=== PATIENT | female | born 2000 | race Caucasian/White ===

== ENCOUNTER 2021-04-08 21:14 | Emergency (ER) | payer SELFPAY ==
[2021-04-08 21:27] VITALS: BP 113/62; PULSE 99; RESP 18; TEMP 36.4; O2SAT 100
[2021-04-08 21:56] LABS: Basophils Percent Auto 0.2 % (0.2-1.2); Eosinophils Absolute Auto 0.1 K/mm3 (0-0.3); Eosinophils Percent Auto 0.5 % (0-4.4); Hematocrit 37.7 % (37.0-47.0); Hemoglobin 12.7 g/dL (12.0-15.0); Immature Granulocyte Absolute 0.05 K/mm3 (0.00-0.031); Immature Granulocyte Percent A 0.4 % (0-0.5); Lymphocytes Absolute Auto 1.72 K/mm3 (0.9-3.2); Lymphocytes Percent Auto 14.2 % (18.3-44.2); Mean Corpuscular HGB Conc 33.7 g/dl (32-36); Mean Corpuscular Hemoglobin 28.5 pg (26-34); Mean Corpuscular Volume 84.7 fl (80-100); Mean Platelet Volume 9.2 fl (7.4-10.4); Monocytes Absolute Auto 0.8 K/mm3 (0.1-0.6); Monocytes Percent Auto 6.3 % (2.6-8.5); Neutrophils Absolute Auto 9.5 K/mm3 (1.3-6.7); Neutrophils Percent Auto 78.4 % (45.5-73.1); Platelet Count Result 209 k/mm3 (150-375); Red Blood Count 4.45 M/mm3 (4.2-5.4); Red Cell Distribution Width 13.6 % (11.5-14.5); White Blood Count 12.1 K/mm3 (4.5-10.0)
[2021-04-08 22:17] VITALS: BP 133/90; PULSE 104; RESP 18; O2SAT 100
[2021-04-08 22:20] VITALS: BP 125/68; PULSE 103
[2021-04-08 22:21] VITALS: BP 122/69; PULSE 113
[2021-04-08 22:22] VITALS: BP 120/72; PULSE 108
--- NOTE | 2021-04-08 22:44 | ED.PREGNANCY ---
HPI - General Chief complaint: [employer] Stated complaint: 14 weeks , abnormal bleeding Time Seen by Provider: 04/08/21 22:19 Source: patient and RN notes reviewed Mode of arrival: ambulatory Limitations: no limitations History of Present Illness HPI Narrative: This is a 21 year old female 14 weeks GA who presents for evaluation of vaginal bleeding. Patient was seen at outside hospital 03/26/21 for vaginal bleeding and she was give rhogam at that time. She has return to ER today because she noticed blood when she wipes. She reports bleeding is minimal and blood is darker . She also reports lower abdominal cramping. She denies fever, nausea, vomiting. She reports she had US in January that showed IUP . Her OBGYN is located in [place] and her next appointment in 04/22/21. Related Data Allergies Allergy/AdvReac Type Severity Reaction Status Date / Time latex Allergy Swelling Verified 04/09/21 00:49 Review of Systems Review of Systems: All systems reviewed & are unremarkable except as noted in HPI and below PMFSH Past Medical History Medical History (Updated 04/09/21 @ 01:00 by Noemy Mora MD) Patient denies medical problems Social History Social History Gender identity (if verbalized by the patient): Female Exam Const: General: no acute distress and alert Orientation/consciousness: patient oriented x3 Resp: Effort & Inspection: normal respiratory effort and no retractions Auscultation: clear to auscultation bilaterally Cardio: Rate: regular rate Rhythm: regular rhythm Heart sounds: no murmurs GI: GI Palp: Yes Soft to palpation, No Tenderness to palpation present (GI) and No Guarding due to palpation present (GI) Auscultation: normal bowel sounds : Speculum Exam - Cervix: normal appearance of the cervix and Cervical os closed Other: copious white discharge, no bleeding seen Back/Spine/Pelvis: Back: no CVA tenderness Skin: General skin exam: normal color Rashes: no rashes Neuro: General: patient oriented x3, moves all extremities and CN's II-XI intact bilaterally Psych: Mental Status: mental status grossly normal Affect: normal affect Course Reevaluation(s) Reevaluation #1: I performed bedside US. Good movement and heart tones seen. Date: 04/08/21 Time: 22:48 Reevaluation #2: Patient will be started on antibiotcs. She received rhogam 2 weeks ago so I Will not repeat. She will be placed on pelvic rest and follow up with OB Date: 04/09/21 Time: 00:21 Vital Signs Vital signs: Vital Signs Temperature 97.6 F 04/08/21 21:27 Pulse Rate 99 04/08/21 21:27 Respiratory Rate 18 04/08/21 21:27 Blood Pressure 113/62 04/08/21 21:27 Pulse Oximetry 100 04/08/21 21:27 Temperature 97.6 F 04/08/21 21:27 Pulse Rate 95 04/09/21 01:15 Respiratory Rate 18 04/09/21 01:15 Blood Pressure 111/70 04/09/21 01:15 Pulse Oximetry 100 04/09/21 01:15 MDM - OB/Uterine Contractions Lab Data Attestation: I reviewed the patient's lab results. Result diagrams: 04/08/21 21:49 Labs: Lab Results 04/08/21 04/08/21 04/08/21 Range/Units 21:49 21:49 21:49 WBC 12.1 H (4.5-10.0) K/mm3 RBC 4.45 (4.2-5.4) M/mm3 Hgb 12.7 (12.0-15.0) g/dL Hct 37.7 (37.0-47.0) % MCV 84.7 (80-100) fl MCH 28.5 (26-34) pg MCHC 33.7 (32-36) g/dl RDW 13.6 (11.5-14.5) % Plt Count 209 (150-375) k/mm3 MPV 9.2 (7.4-10.4) fl Immature Gran % (Auto) 0.4 (0-0.5) % Neut % (Auto) 78.4 H (45.5-73.1) % Lymph % (Auto) 14.2 L (18.3-44.2) % Prairie % (Auto) 6.3 (2.6-8.5) % Eos % (Auto) 0.5 (0-4.4) % Baso % (Auto) 0.2 (0.2-1.2) % Lymph # (Auto) 1.72 (0.9-3.2) K/mm3 Prairie # (Auto) 0.8 H (0.1-0.6) K/mm3 Eos # (Auto) 0.1 (0-0.3) K/mm3 Baso # (Auto) 0.0 (0.0-0.1) K/mm3 Abs Immat Gran (auto) 0.05 H (0.00-0.031) K/mm3 Absolute Ne
[2021-04-08 23:35] VITALS: BP 115/68; PULSE 92; RESP 16; O2SAT 100
[2021-04-09 00:18] LABS: Add Urine Microscopic? YES; Appearance Urine Cloudy (Clear); Bacteria Urine Trace /hpf; Bilirubin Urine Negative (Negative); Blood Urine Negative (Negative); Color Urine Yellow (Yellow); Glucose Urine UA Negative (Negative); Ketones Urine 1+ mg/dL (Negative); Leukocyte Esterase Ur 3+ LEU/UL (Negative); Mucus Urine Few /lpf; Nitrate Urine Negative (Negative); Protein Urine 1+ mg/dL (Negative); Specific Grav Ur 1.027 (1.001-1.035); Squamous Epithelial Cell Urine Few /hpf (Few); WBC Urine 51-75 /hpf
[2021-04-09] MEDS: CEPHALEXIN 500 MG CAPSULE PO (00:49)
[2021-04-09 01:15] VITALS: BP 111/70; PULSE 95; RESP 18; O2SAT 100
== END 2021-04-09 01:15 | disposition home or self-care (01) ==
PROVIDERS: Emergency Medicine; Emergency Provider General Practice
DX: O23.42 Unspecified infection of urinary tract in pregnancy, second trimester (principal); Z3A.14 14 weeks gestation of pregnancy
CPT/HCPCS: 36415; 81001; 84702; 85025; 85461; 86880; 86902; 87070; 87086; 87088; 87491; 87591; 87808; 99284; A9270